=== PATIENT | female | born 1975 | race African-American/Black ===

== ENCOUNTER 2022-01-28 11:52 | Emergency (ER) | payer BC ==
[~2022-01-28] VITALS: Ht 152.4 cm; Wt 67.0 kg
[2022-01-28] MEDS ORDERED: ASPIRIN 81MG TABLET PO ONE (14:15)
[2022-01-28] MEDS ORDERED: NITROGLYCERIN 0.4MG TABLET SL SL PRN (14:15)
[2022-01-28 16:00] VITALS: BP 122/80
== END 2022-01-28 16:54 | disposition left against medical advice (07) ==
LOC: ER 11:52
DX: R07.89 Other chest pain (principal); D64.9 Anemia, unspecified
CPT/HCPCS: 71045; 81025; 93005; 99283; Z7610